=== PATIENT | female | born 1980 | race Caucasian/White ===

== ENCOUNTER 2023-02-16 19:24 | Emergency (ER) | payer BC, SELFPAY ==
[2023-02-16 19:37] VITALS: BP 150/92; PULSE 78; RESP 16; TEMP 36.1; O2SAT 100; BMI 35.6
--- NOTE | 2023-02-16 19:37 | ED_ITS ---
HPI - Skin/Abscess/Foreign Bdy General Stated complaint: Finger lac Source: patient Mode of arrival: ambulatory Limitations: no limitations History of Present Illness HPI narrative: 42-year-old female presents with laceration to left 2nd distal aspect of digit, patient tells me she accidentally cut herself while cooking prior to arrival. Patient reports intermittent tingling. Up-to-date on tetanus shot. This is not an intentional cut. Patient arrives with finger in a dressing. Able to move affected finger w/o difficulty. Not on thinners Related Data Allergies Allergy/AdvReac Type Severity Reaction Status Date / Time No Known Allergies Allergy Verified 02/16/23 19:37 Review of Systems Review of Systems: Constitutional : No Fever, No Chills, Cardiovascular : No Chest Pain, No SOB Respiratory : No Dyspnea Gastrointestinal : No abdominal pain Musculoskeletal : No Joint Swelling Skin : No rash, positive skin laceration Neuro : No Weakness, No Numbness Psych : No SI/HI Yes all other systems are reviewed and are negative [facility] Past Medical History Attestation statement: The following information was validated with the patient. Source: old records reviewed and nursing notes reviewed Physical Exam Vital Signs: Vital Signs: vss Appearance: Alert.? Oriented X3.? No acute distress.? Head: Normocephalic, atraumatic, no step-offs or deformities Eyes: Pupils equal, round and reactive to light.? CVS: Normal heart rate and rhythm.? Pulses normal.? Respiratory: No respiratory distress.? Breath sounds normal.? Skin: Skin warm and dry.? Normal skin color.? Normal skin turgor.? + linear laceration to L. second distal digit 2 cm . 2+ radial pulses equal bilateral. Full range of motion to all fingers and wrist bilaterally. Cap refill less than 2 seconds equal bilateral. Extremities: No lower extremity edema.? No calf ttp. 5/5 strength to bilateral upper and lower extremities Neuro: Oriented X 3.? No motor deficit.? No sensory deficit. CN 2-12 intact Course Course Course Narrative: This is an RME: Additional HPI, ROS, PE not included below will be deferred to primary provider. 42-year-old female presents with laceration to left 2nd distal aspect of digit, patient tells me she accidentally cut herself while cooking prior to arrival. Patient reports intermittent tingling. Up-to-date on tetanus shot. This is not an intentional cut. Patient arrives with finger in a dressing. Physical exam with laceration to distal aspect of 2nd digit. Medical Decision Making Medical Decision Making [facility] Narrative: 1944 42-year-old female presents for evaluation of laceration to left 2nd digit distal aspect just prior to arrival accidentally cut herself with a knife. Up-to-date on immunizations including tetanus. Physical exam with laceration to left 2nd digit neurovascular status intact. Capillary refill normal sensation. Likely simple laceration no signs of fracture, dislocations, neurovascular compromise. Plan at this time area will be glued Differential Diagnosis Differential Diagnoses: The differential diagnosis associated with the presentation includes Likely simple laceration no signs of fracture, dislocations, neurovascular compromise. Admission/Observation Consideration of admission/observation: Escalation of care including admission/observation considered unlikely Core Measures AMI core measures followed: Yes Measure exclusions: not indicated Critical Care Time Critical Care Time Critical Care Time: No Discharge Plan Discharge Clinical Impression: Laceration of finger Patient Disposition: Home, Self-Care Instructions: Laceration (ED), Laceration Without Closure (ED) Additional Instructions: Take your medications as prescribed. If you were prescribed antibiotics today, it is important that you take your medication to their entirety, do not s kip any doses, do not finish them early. Follow-up with your primary care provider this week. Return to the emergency department with new or worsening symptoms. Such as fevers, chills, chest pain, shortness of breath, nausea, vomiting, dizziness, headache, vision changes, lethargy In case of emergency call 911 Referrals: Physician,Mariah J [Primary Care Provider] - 2 days Stand Alone Forms: Work/School Release
== END 2023-02-16 20:02 | disposition home or self-care (01) ==
PROVIDERS: Emergency Provider Student in an Organized Health Care Education/Training Program
DX: S61.211A Laceration without foreign body of left index finger without damage to nail, initial encounter (principal); W26.0XXA Contact with knife, initial encounter; Y93.G1 Activity, food preparation and clean up; Y92.010 Kitchen of single-family (private) house as the place of occurrence of the external cause; Y99.9 Unspecified external cause status
CPT/HCPCS: 99282

== ENCOUNTER 2024-08-16 09:38 | Emergency (ER) | payer OTHER, SELFPAY ==
--- NOTE | ~2024-08-16 | US_ITS ---
EXAMINATION: US OBSTETRICAL ULTRASOUND CLINICAL INFORMATION: Vaginal bleeding. COMPARISON: None available. LMP: 07/04/2024. Gestational age by maternal dates is 6 weeks 1 day. Estimated date of delivery by maternal dates is 04/10/2025. TECHNIQUE: Endovaginal sonography FINDINGS: A fetus is not identified. No crown-rump length was calculated. There is a small gestational sac with decidual reaction noted. Mean sac diameter of 5 mm yielding an estimated menstrual age 5 weeks 0 days. A small yolk sac was identified as well. MATERNAL ADNEXA: The right maternal ovary measures 2.2 x 2.2 x 1.6 cm. The left maternal ovary measures 3.1 x 2.1 x 1.9 cm. Popliteal cyst at 13 x 14 x 12 mm. There is no significant maternal adnexal mass. No maternal pelvic ascites. US/US OB pelvic and transvaginal IMPRESSION: Small gestational sac noted but at this time a pole is not identified. This needs to be correlated with serial quantitative beta hCGs and a follow-up ultrasound. Electronically signed by: Jr Joel MD 08/16/2024 02:55 PM EDT
[2024-08-16 09:39] VITALS: BP 137/77; PULSE 95; RESP 16; TEMP 36.3; O2SAT 96; BMI 37.6
--- NOTE | 2024-08-16 10:43 | ED.FEMALEGU ---
HPI - Female Genitourinary General Chief complaint: Urogenital-Female Stated complaint: bleeding- Time Seen by Provider: 08/16/24 10:38 Source: patient Mode of arrival: ambulatory Limitations: no limitations History of Present Illness ED Provider: Luciano YO HPI Narrative: 43 yold female with no pmh who is presents to the ED for lower abdominal cramping and vaginal bleeding. patient states she is 6 weeks . patient deinies any recent trauma, dysuria, flank pain, vaginal lesions, or back pain. Related Data Allergies Allergy/AdvReac Type Severity Reaction Status Date / Time No Known Allergies Allergy Verified 08/16/24 09:45 Review of Systems Review of Systems: lower abdominal cramping. vaginal bleeding Yes all other systems are reviewed and are negative PMFSH Social History Social History Advance Directives: No Advance Directives Information Provided: No Do you have a plan to hurt others: No Plan Physical Exam Vital Signs: Vital Signs: Last Vital Signs Temp 97.3 F 08/16/24 15:25 Pulse 95 08/16/24 15:25 Resp 16 08/16/24 15:25 BP 137/77 08/16/24 15:25 Pulse Ox 96 08/16/24 15:25 O2 Del Method Room Air 08/16/24 15:25 BMI result Body Mass Index 37.6 Const: General: cooperative, healthy appearing, comfortable, no acute distress, well developed, alert, awake and Physically active Orientation/consciousness: patient oriented x3 HEENT: Head: Yes normal to inspection, Yes No palpable skull fracture present, Yes normocephalic and Yes atraumatic Eyes: General: appearance normal, both eyes and all related structures Neck: Neck: Yes normal visual inspection, Yes full ROM, Yes no lymphadenopathy, Yes no meningeal signs, Yes trachea midline, Yes supple, No anterior neck swelling and No tender Chest: Chest palpation & inspection: normal inspection of the chest and normal palpation of entire chest wall Resp: Effort & Inspection: normal respiratory effort and able to speak in complete sentences Auscultation: clear to auscultation bilaterally Cardio: Jugular venous distension: no JVD Heart sounds: S1 normal heart sound present and S2 normal heart sound present GI: Inspection: Yes normal to inspection Palpation (GI): Soft to palpation, not firm, nontender, no guarding and not rigid : General: No CVA tenderness and Yes no CVA tenderness Back/Spine/Pelvis: Back: no CVA tenderness, No CVA tenderness and No back tenderness Skin: General skin exam: no rashes or lesions noted, elasticity normal and turgor normal Neuro: General: patient oriented x3, gait normal, tone normal, moves all extremities, Normal light touch and pain sensation, no meningeal signs, no focal motor deficits, CN's II-XI intact bilaterally and normal sensation to monofilament Extrem: General: Yes normal to inspection, Yes full ROM and Yes capillary refill normal Psych: Appearance: grossly normal, well kempt and not disheveled Medical Decision Making Medical Decision Making [facility] Narrative: [age] old female states 6 weeks presents to ED for lower abdominal cramping and vaginal bleeding. Labs will be ordered. Ultrasound ordered. Patient is hemodynamically stable. 3:12pm: Pelvic exam negative for vaginal bleeding, CMT, or adnexal tenderness. Cervical os is closed. Ultrasound shows early . Patient informed to follow-up with her cooler decreasing OBGYN. Patient explained worrisome sign informed to return to the ED immediately. Patient given copy of labs and imaging Differential Diagnosis Differential Diagnoses: The differential diagnosis associated with the presentation includes (ectopic . threatened abotion, early ) Admission/Observation Consideration of admission/observation: Escalation of care including admission/observation considered Lab Data [facility] Lab Attestation statement: I reviewed the patient's lab results. 08/16/24 11:41 08/16/24 11:41 Labs: Lab Results 08/16/24 08/16/24 Range/Units 11:08 11:41 WBC 6.4 (4.8-10.8) X10*3/uL RBC 4.19 L (4.20-5.50) X10*6/uL Hgb 12.6 (12.0-16.0) g/dl Hct 36.7 L (37.0-47.0) % MCV 87.6 (80.0-98.0) fL MCH 30.1 (27.0-33.0) pg MCHC 34.3 (31.0-35.0) g/dl RDW 12.6 (11.0-16.0) % Plt Count 362 (160-400) X10*3/uL MPV 8.4 L (9.4-12.3) fL Immature Gran % (Auto) 0.6 H (0.0-0.4) % Neut % (Auto) 63.3 (45-73) % Lymph % (Auto) 26.9 (20-40) % [place] % (Auto) 7.0 (2-11) % Eos % (Auto) 1.6 (0-4) % Baso % (Auto) 0.6 (0-2) % Lymph # (Auto) 1.7 (1.2-4.9) X10*3/uL [place] # (Auto) 0.5 (0.1-1.2) X10*3/uL Eos # (Auto) 0.1 (0.0-0.4) X10*3/uL Baso # (Auto) 0.0 (0.0-0.2) X10*3/uL Abs Immat Gran (auto) 0.04 H (0.00-0.03) X10*3/uL Absolute Neuts (auto) 4.1 (2.0-8.3) x10*3/uL Absolute Nucleated RBC 0.000 (0.0-0.012) X10*3/uL Nucleated RBC % (auto) 0.0 (0.0-0.2) /100WBC PT 11.8 (10.9-12.4) SEC INR 1.0 (0.9-1.1) APTT 34.3 (26.0-36.8) SEC Sodium 141 (135-145) mmol/L Potassium 4.2 (3.3-5.1) mmol/L Chloride 108 (96-108) mmol/L Carbon Dioxide 25 (22-29) mmol/L Anion Gap 12 (12-20) BUN 10 (9-16) mg/dL Creatinine 0.68 (0.5-1.4) mg/dL Estim Creat Clear Calc 113.4 Estimated GFR > 60 Random Glucose 105 (60-115) mg/dL Calcium 9.7 (8.4-10.2) mg/dL Total Bilirubin 0.2 (0.0-1.0) mg/dL AST 17 (5-31) U/L ALT 20 (0-31) U/L Alkaline Phosphatase 80 (39-117) U/L Total Protein 7.8 (6.5-8.0) g/dL Albumin 4.5 (3.5-5.0) g/dL Beta HCG, Quant 427 mIU/mL Urine Color Yellow Urine Appearance Clear Urine pH 6.5 (5.0-9.0) Ur Specific [place] <= 1.005 (1.005-1.025) Urine Protein Negative (Neg-Trace) mg/dL Urine Glucose (UA) Negative (Negative) mg/dL Urine Ketones Negative (Negative) mg/dL Urine Blood Large (3+) H (Negative) Urine Nitrite Negative (Negative) Ur Leukocyte Esterase Negative (Negative) Urine RBC 0-2 (0-2) /HPF Urine WBC 0-5 (0-5) /HPF Ur Squamous Epith Cells 3-5 (0-2) /HPF Urine Bacteria Trace (None Seen) Hyaline Casts 0-2 (0-2) /LPF Urine Test WEAKLY POSITIVE H (NEGATIVE) Blood Type O Positive Independent Interpretation I performed an independent interpretation of an: Ultrasound Radiology Impression Discussion of test interpretation with radiology: I have reviewed the radiologist's reading. Independent Historian Clinical information obtained from an independent historian. History obtained from or confirmed by: Other (patient) External Record Review External record reviewed: Other (prior visits) Discharge Plan Discharge Clinical Impression: , , threatened Patient Disposition: Home, Self-Care Instructions: Threatened Miscarriage (ED), (ED) Additional Instructions: Recommend follow-up with your OBGYN provider within 2 days according for repeat labs and ultrasound. Return to ED immediately for any abdominal pain, nausea, vomiting, flank pain, fever, chills, vaginal discharge, vaginal bleeding, or any other concerning symptoms. Stand Alone Forms: Work/School Release Interventions: ED Discharge Assessment Last Done: 08/16/24 15:25 Discharge Date/Time: 08/16/24 15:26 Print Language: Korean
[2024-08-16 11:20] LABS: Appearance Urine Clear; Color Urine Yellow; Glucose Urine UA Negative (Negative); Leukocyte Esterase Urine Negative (Negative); Nitrite Urine Negative (Negative); PH 6.5 (5.0-9.0); Specific Gravity - Urine <= 1.005 (1.005-1.025); UMIC TRIGGER UACC YES; Urine Blood Large (3+) (Negative); Urine Ketones Negative (Negative); Urine Protein Negative (Neg-Trace)
[2024-08-16 11:33] LABS: UPreg QC Valid YES; Urine Pregnancy WEAKLY POSITIVE (NEGATIVE)
[2024-08-16 11:47] LABS: MANUAL DIFF FLAG NO
[2024-08-16 11:50] LABS: Basophils Percent Auto 0.6 % (0-2); Eosinophils Absolute Auto 0.1 X10*3/uL (0.0-0.4); Eosinophils Percent Auto 1.6 % (0-4); Hematocrit 36.7 % (37.0-47.0); Hemoglobin 12.6 g/dl (12.0-16.0); Imm Gran Abs Auto 0.04 X10*3/uL (0.00-0.03); Imm Gran Pct Auto 0.6 % (0.0-0.4); Lymphocytes Absolute Auto 1.7 X10*3/uL (1.2-4.9); Lymphocytes Percent Auto 26.9 % (20-40); Mean Corpuscular HGB Conc 34.3 g/dl (31.0-35.0); Mean Corpuscular Hemoglobin 30.1 pg (27.0-33.0); Mean Corpuscular Volume 87.6 fL (80.0-98.0); Mean Platelet Volume 8.4 fL (9.4-12.3); Monocytes Absolute Auto 0.5 X10*3/uL (0.1-1.2); Neutrophils Absolute Auto 4.1 x10*3/uL (2.0-8.3); Neutrophils Percent Auto 63.3 % (45-73); Platelet Count 362 X10*3/uL (160-400); Red Blood Count 4.19 X10*6/uL (4.20-5.50); Red Cell Distribution Width 12.6 % (11.0-16.0); White Blood Count 6.4 X10*3/uL (4.8-10.8)
[2024-08-16 11:56] LABS: Prothrombin Time 11.8 SEC (10.9-12.4)
[2024-08-16 11:58] LABS: Partial Thromboplastin Time 34.3 SEC (26.0-36.8)
[2024-08-16 12:01] LABS: Bacteria Urine Trace (None Seen); Hyaline Casts Urine 0-2 /LPF (0-2); RBC Urine 0-2 /HPF (0-2); WBC Urine 0-5 /HPF (0-5)
[2024-08-16 12:11] LABS: Alanine Aminotransferase 20 U/L (0-31); Albumin Level 4.5 g/dL (3.5-5.0); Alkaline Phosphatase 80 U/L (39-117); Anion Gap 12 (12-20); Aspartate Amino Transferase 17 U/L (5-31); Bilirubin Total 0.2 mg/dL (0.0-1.0); Blood Urea Nitrogen 10 mg/dL (9-16); Calcium 9.7 mg/dL (8.4-10.2); Carbon Dioxide 25 mmol/L (22-29); Chloride 108 mmol/L (96-108); Creatinine Clr Calc Pharmacy 113.4; Estimated Glomerular Filt Rate > 60; Glucose Random 105 mg/dL (60-115); HCG Quantitative 427 mIU/mL; Potassium 4.2 mmol/L (3.3-5.1); Sodium 141 mmol/L (135-145); Total Protein 7.8 g/dL (6.5-8.0)
[2024-08-16 15:25] VITALS: BP 137/77; PULSE 95; RESP 16; TEMP 36.3; O2SAT 96
== END 2024-08-16 15:26 | disposition home or self-care (01) ==
PROVIDERS: Physician Assistant; Emergency Provider Student in an Organized Health Care Education/Training Program; PCP Nurse Practitioner Gerontology
DX: O20.0 Threatened abortion (principal); Z3A.01 Less than 8 weeks gestation of pregnancy
CPT/HCPCS: 36415; 76801; 76817; 80053; 81001; 81025; 84702; 85025; 85610; 85730; 86900; 86901; 99284

== ENCOUNTER 2025-04-13 17:07 | Emergency (ER) | payer SELFPAY ==
--- NOTE | ~2025-04-13 | XR_ITS ---
CLINICAL HISTORY: thumb pain 3 view left 1st digit Comparison: None Findings: Mild osteoarthritis particularly in the 1st carpal-metacarpal articulation. No acute displaced fracture. No dislocation. Sesamoid bones noted. Mild soft tissue prominence including thenar region. No radiopaque retained foreign body. IMPRESSION: 1. Mild osteoarthritis of the 1st carpal-metacarpal articulation. 2. No acute fracture or dislocation. This document has been electronically signed by: Luis Lehman MD on 04/13/2025 20:51:29
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
[2025-04-13 17:21] VITALS: BP 137/86; PULSE 91; RESP 20; TEMP 36.6; O2SAT 99; BMI 29.4
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
[2025-04-13 17:46] LABS: MANUAL DIFF FLAG NO
[2025-04-13 17:47] LABS: Basophils Percent Auto 0.6 % (0-2); Eosinophils Absolute Auto 0.2 X10*3/uL (0.0-0.4); Eosinophils Percent Auto 2.4 % (0-4); Hematocrit 37.6 % (37.0-47.0); Hemoglobin 12.9 g/dl (12.0-16.0); Imm Gran Abs Auto 0.01 X10*3/uL (0.00-0.03); Imm Gran Pct Auto 0.1 % (0.0-0.4); Lymphocytes Absolute Auto 2.2 X10*3/uL (1.2-4.9); Lymphocytes Percent Auto 31.9 % (20-40); Mean Corpuscular HGB Conc 34.3 g/dl (31.0-35.0); Mean Corpuscular Hemoglobin 29.7 pg (27.0-33.0); Mean Corpuscular Volume 86.4 fL (80.0-98.0); Mean Platelet Volume 8.8 fL (9.4-12.3); Monocytes Absolute Auto 0.5 X10*3/uL (0.1-1.2); Monocytes Percent Auto 6.7 % (2-11); Neutrophils Absolute Auto 4.1 x10*3/uL (2.0-8.3); Neutrophils Percent Auto 58.3 % (45-73); Platelet Count 347 X10*3/uL (160-400); Red Blood Count 4.35 X10*6/uL (4.20-5.50); Red Cell Distribution Width 12.6 % (11.0-16.0)
[2025-04-13 18:14] LABS: Alanine Aminotransferase 16 U/L (0-31); Albumin Level 4.8 g/dL (3.5-5.0); Alkaline Phosphatase 61 U/L (39-117); Anion Gap 12 (12-20); Aspartate Amino Transferase 20 U/L (5-31); Bilirubin Total 0.2 mg/dL (0.0-1.0); Blood Urea Nitrogen 12 mg/dL (9-16); Calcium 9.3 mg/dL (8.4-10.2); Carbon Dioxide 26 mmol/L (22-29); Chloride 107 mmol/L (96-108); Creatinine Clr Calc Pharmacy 104.1; Estimated Glomerular Filt Rate > 60; Glucose Random 98 mg/dL (60-115); Sodium 141 mmol/L (135-145); Total Protein 7.4 g/dL (6.5-8.0)
[2025-04-13 18:20] LABS: HCG Quantitative < 2 mIU/mL
[2025-04-13 20:10] VITALS: BP 124/81; PULSE 92; RESP 18; TEMP 36.8; O2SAT 97
--- NOTE | 2025-04-13 20:13 | MHC.EDTECH ---
This Pct assumed care of Patient ,vitals taken ,Patient family members at bedside .
--- NOTE | 2025-04-13 20:20 | MHC.EDTECH ---
Patient urine sample collected and sent to lab .
[2025-04-13 20:33] LABS: Appearance Urine Cloudy; Color Urine Yellow; Glucose Urine UA Negative (Negative); Leukocyte Esterase Urine Moderate (2+) (Negative); Nitrite Urine Negative (Negative); Specific Gravity - Urine <= 1.005 (1.005-1.025); UMIC TRIGGER UACC YES; Urine Blood Trace (Negative); Urine Ketones Negative (Negative); Urine Protein Negative (Neg-Trace)
[2025-04-13 20:38] LABS: Bacteria Urine 4+ (None Seen); Hyaline Casts Urine 0-2 /LPF (0-2); RBC Urine 0-2 /HPF (0-2); UACC Culture Trigger YES
[2025-04-13 21:47] VITALS: BP 124/81; PULSE 92; RESP 18; TEMP 36.8; O2SAT 97
== END 2025-04-13 21:52 | disposition home or self-care (01) ==
PROVIDERS: Physician Assistant; Emergency Provider Emergency Medicine; PCP Nurse Practitioner Gerontology
DX: S60.312A Abrasion of left thumb, initial encounter (principal); V43.52XA Car driver injured in collision with other type car in traffic accident, initial encounter; Y93.9 Activity, unspecified; Y92.410 Unspecified street and highway as the place of occurrence of the external cause; Y99.9 Unspecified external cause status; R10.9 Unspecified abdominal pain; R07.9 Chest pain, unspecified
CPT/HCPCS: 36415; 71260; 73140; 74177; 80053; 81001; 84702; 85025; 87086; 99284

== ENCOUNTER → 2025-04-13 19:44 | Outpatient (BNV) | payer SELFPAY | PROVIDERS: Emergency Provider Emergency Medicine; PCP Nurse Practitioner Gerontology; Visit Provider Radiology Neuroradiology | DX: K80.20 Calculus of gallbladder without cholecystitis without obstruction (principal); K56.41 Fecal impaction; R07.81 Pleurodynia; M79.645 Pain in left finger(s); V89.2XXA Person injured in unspecified motor-vehicle accident, traffic, initial encounter | CPT/HCPCS: 71260; 73140; 74177 ==